=== PATIENT | female | born 1985 | race Two or more races ===

== ENCOUNTER → 2019-10-13 | Outpatient (CLI) | payer OTHER | END | disposition home or self-care (01) | LOC: PRENATAL 13:47 | DX: O24.311 Unspecified pre-existing diabetes mellitus in pregnancy, first trimester (principal); O36.80X1 Pregnancy with inconclusive fetal viability, fetus 1 ==

== ENCOUNTER → 2019-11-02 | Outpatient (CLI) | payer OTHER | END | disposition home or self-care (01) | LOC: PRENATAL 08:30 | DX: O35.3XX0 Maternal care for (suspected) damage to fetus from viral disease in mother, not applicable or unspecified (principal); Z36.82 Encounter for antenatal screening for nuchal translucency; O24.319 Unspecified pre-existing diabetes mellitus in pregnancy, unspecified trimester; Z36.0 Encounter for antenatal screening for chromosomal anomalies; Z3A.12 12 weeks gestation of pregnancy ==

== ENCOUNTER → 2019-12-21 | Outpatient (CLI) | payer OTHER | END | disposition home or self-care (01) | LOC: PRENATAL 08:50 | DX: O35.3XX0 Maternal care for (suspected) damage to fetus from viral disease in mother, not applicable or unspecified (principal); O24.312 Unspecified pre-existing diabetes mellitus in pregnancy, second trimester ==

== ENCOUNTER → 2020-02-22 | Outpatient (CLI) | payer OTHER | END | disposition home or self-care (01) | LOC: PRENATAL 09:00 | DX: O26.843 Uterine size-date discrepancy, third trimester (principal); O24.313 Unspecified pre-existing diabetes mellitus in pregnancy, third trimester; Z36.89 Encounter for other specified antenatal screening; Z34.82 Encounter for supervision of other normal pregnancy, second trimester ==

== ENCOUNTER 2020-03-21 09:15 | Outpatient (CLI) | payer OTHER | END 2020-03-21 10:15 | disposition home or self-care (01) | LOC: PRENATAL 09:15 | PROVIDERS: ATTEND Obstetrics & Gynecology | DX: O26.843 Uterine size-date discrepancy, third trimester (principal); O36.8139 Decreased fetal movements, third trimester, other fetus; Z3A.32 32 weeks gestation of pregnancy ==

== ENCOUNTER → 2020-04-18 | Outpatient (CLI) | payer OTHER | END | disposition home or self-care (01) | LOC: PRENATAL 09:30 | PROVIDERS: ATTEND Obstetrics & Gynecology | DX: O26.843 Uterine size-date discrepancy, third trimester (principal); O24.313 Unspecified pre-existing diabetes mellitus in pregnancy, third trimester; O36.8131 Decreased fetal movements, third trimester, fetus 1 ==